=== PATIENT | female | born 1960 | race Caucasian/White ===

== ENCOUNTER 2024-02-01 11:50 | Emergency (ER) | payer OTHER ==
[~2024-02-01] VITALS: Ht 175.3 cm; Wt 56.7 kg
[2024-02-01 12:15] VITALS: BP 127/64; PULSE 53; RESP 18; TEMP 98; O2SAT 97
[2024-02-01] MEDS ORDERED: AUGMENTIN 875MG ONE (12:22)
[2024-02-01] MEDS ORDERED: TORADOL ONE (12:22)
[2024-02-01] MEDS: TORADOL IM STA (12:25)
[2024-02-01] MEDS: AUGMENTIN 875MG PO STA (12:25)
[2024-02-01] MEDS ORDERED: KETO10TA PO (12:29)
[2024-02-01] MEDS ORDERED: AMOX1TAB60 PO (12:29)
== END 2024-02-01 12:34 | disposition home or self-care (01) ==
LOC: ER 11:50
DX: K04.7 Periapical abscess without sinus (principal); Z98.84 Bariatric surgery status
CPT/HCPCS: 99283; 96372; J1885

== ENCOUNTER 2024-02-06 13:51 | Observation (INO) | payer MEDICAID, MEDICARE, OTHER ==
[~2024-02-06] VITALS: Ht 177.8 cm; Wt 60.6 kg
[2024-02-06 13:51] VITALS: BP 129/65; PULSE 75; RESP 18; TEMP 98.3; O2SAT 98
[~2024-02-06 13:51] MED LIST: AMOX1TAB60 PO; KETO10TA PO
[2024-02-06 14:23] LABS: BASOPHIL % 0.3 % (0.1-1.2); EOSINOPHIL # 0.1 10^3/uL (0.0-0.2); EOSINOPHIL % 1.4 % (0.0-5.0); HEMATOCRIT(ML) 28.4 % (36.0-46.0); HEMOGLOBIN 9.1 g/dL (12.0-15.0); IG % 0.1 % (0.00-0.50); LYMPHOCYTES # 2.68 10^3/uL1 (1.0-4.8); MEAN CORP HGB 28.5 pg (26-34); MONOCYTES # 0.4 10^3/uL (0.3-0.8); MONOCYTES % 6.2 % (5.0-12.0); NEUTROPHIL # 3.8 10^3/uL (1.8-7.7); RED BLOOD CELL 3.19 10^6/uL (4.00-5.20); RED CELL DISTRIBUTION WIDTH 14.4 % (11.5-14.5); WHITE BLOOD CELL 7.1 10^3/uL (4.5-11.0)
[2024-02-06 14:45] LABS: ALANINE AMINOTRANSFERASE(ML) 12 U/L (12-78); ALBUMIN(ML) 3.6 g/dL (3.4-5.0); ALBUMIN/GLOBULIN RATIO 1.058; ALKALINE PHOSPHATASE 68 U/L (50-136); ANION GAP 16.2; ASPARTATE AMINO TRANSFERASE 10 U/L (0-35); CALCIUM 8.6 mg/dL (8.4-10.5); CARBON DIOXIDE 23.7 mmol/L (20.0-32); CREATINE KINASE 69 U/L (26-192); CREATININE SERUM 0.83 mg/dL (0.59-1.40); EST GFR, NON-AA 69.2 (>/=60); GLUCOSE 97 mg/dL (74-106); POTASSIUM 3.9 mmol/L (3.6-5.2); SODIUM 142 mmol/L (132-145)
[2024-02-06 14:47] LABS: CREATINE KINASE MB < 0.5 ng/mL (0.5-3.6); TROPONIN I HIGH SENSITIVITY < 4 ng/L (0-50)
[2024-02-06 14:50] VITALS: BP 113/53; PULSE 64; RESP 18; O2SAT 98
[2024-02-06] MEDS: ASPIRIN PO STA (16:03)
[2024-02-06] MEDS: NS 1000ML 1,000 ML IV STA (16:03)
[2024-02-06] MEDS: NITROSTAT SL PRN (16:06)
[2024-02-06 17:00] VITALS: BP 116/45; PULSE 74; RESP 20; TEMP 98.1; O2SAT 100
[2024-02-06] MEDS ORDERED: NITROSTAT SL PRN (17:30)
[2024-02-06] MEDS ORDERED: APRESOLINE IV PRN (17:30)
[2024-02-06] MEDS ORDERED: DUONEB 0.5-3(2.5) MG/3 ML IH PRN (17:30)
[2024-02-06] MEDS ORDERED: DEXTROSE 50%-WATER SYRINGE IV PRN (17:30)
[2024-02-06] MEDS ORDERED: ZOFRAN IV PRN (17:30)
[2024-02-06] MEDS ORDERED: MORPHINE SULFATE IV PRN ×2 (17:30→20:30)
[2024-02-06] MEDS ORDERED: NICOTINE 14MG PATCH TD ONE (18:06)
[2024-02-06] MEDS: NICOTINE 14MG PATCH TD STA (18:08)
[2024-02-06] MEDS: NS 1000ML 1,000 ML IV ONE (18:15)
[2024-02-06] MEDS: LOVENOX SQ SCH (18:15)
[2024-02-06 19:10] VITALS: BP 116/50; PULSE 72; RESP 19; TEMP 98.2; O2SAT 93
[2024-02-06] MEDS: NICOTINE 21 MGPATCH TD PRN (20:37)
[2024-02-06 23:30] VITALS: BP 99/52; PULSE 65; RESP 18; TEMP 97.5; O2SAT 96
[2024-02-07 03:30] VITALS: BP 104/52; PULSE 68; RESP 18; TEMP 97.6; O2SAT 96
[2024-02-07 04:10] VITALS: RESP 18; O2SAT 95
[2024-02-07] MEDS ORDERED: IBUP-1131 PO (05:07)
[2024-02-07] MEDS ORDERED: ROPI1TAB41 PO (05:07)
[2024-02-07 07:40] VITALS: BP 101/56; PULSE 60; RESP 18; TEMP 97.3; O2SAT 96
[2024-02-07 08:04] LABS: ANION GAP 13.7; BUN/CREATININE RATIO 45.07 (10.0-20.0); CARBON DIOXIDE 23.1 mmol/L (20.0-32); CREATININE SERUM 0.71 mg/dL (0.59-1.40); EST GFR, NON-AA 82.9 (>/=60); POTASSIUM 3.8 mmol/L (3.6-5.2)
[2024-02-07 08:36] LABS: HEMATOCRIT(ML) 22.2 % (36.0-46.0); HEMOGLOBIN 7.1 g/dL (12.0-15.0); MEAN CORP HGB 28.9 pg (26-34); MEAN CORP VOLUME 90.2 fL (78-100); RED BLOOD CELL 2.46 10^6/uL (4.00-5.20); RED CELL DISTRIBUTION WIDTH 14.5 % (11.5-14.5)
[2024-02-07] MEDS: ASPIRIN EC PO SCH (09:00)
[2024-02-07] MEDS: PROTONIX IV IV SCH (09:04)
[2024-02-07] MEDS: ULTRAM PO PRN (09:15)
[2024-02-07 14:02] VITALS: BP 101/56; PULSE 60; RESP 18; TEMP 97.3; O2SAT 96
== END 2024-02-07 14:02 | disposition home or self-care (01) ==
LOC: ER 13:51 → OBS 16:07
PROVIDERS: ADMIT Student in an Organized Health Care Education/Training Program; ATTEND Student in an Organized Health Care Education/Training Program
DX: R07.89 Other chest pain (principal); R55 Syncope and collapse; R11.0 Nausea; E86.1 Hypovolemia; E86.0 Dehydration; K04.7 Periapical abscess without sinus; Z88.5 Allergy status to narcotic agent; Z88.6 Allergy status to analgesic agent; Z98.84 Bariatric surgery status; Z79.899 Other long term (current) drug therapy; Z98.890 Other specified postprocedural states
CPT/HCPCS: 96372; 96361 ×2; 99285; 71045; 93880; 80053; 85025; 36415 ×2; 85379; 84484 ×3; 82553; 83880; 82550; 93005; 96374; 85027; 80048; 84443; 93306; G0378 ×21; J7030 ×3; J8499 ×2; J1650; C9113